=== PATIENT | female | born 1995 | race Caucasian/White ===

== ENCOUNTER 2016-10-07 10:59 | Emergency (ER) | payer MEDICAID ==
[2016-10-07 11:15] VITALS: BP 146/87
--- NOTE | 2016-10-07 11:18 | Emergency Department Report ---
Chief Complaint: Chest Pain Stated Complaint: CHEST PAIN/CRAMPING/VAG BLEEDING Time Seen by Provider: 10/07/16 11:16 - HPI History of Present Illness: PT states she has hx of anemia PT had lmp 09/23/16 PT reports vaginal spotting x 2 days - ROS Review of Systems: + chest pain + fatigue - Exam Vital Signs: Vital Signs 10/07/16 11:11 Temperature 98.1 F Pulse Rate 62 Respiratory 18 Rate Blood Pressure 146/87 O2 Sat by Pulse 100 Oximetry Physical Exam: pt looks well, non toxic conjunctiva pale MSE screening note: Focused history and physical exam performed. Due to findings the following was ordered: ekg, labs ED Disposition for MSE Condition: Stable
[2016-10-07 11:43] LABS: Basophils % (Auto) 0.9 % (0.0-1.8); Eosinophils % (Auto) 2.9 % (0.0-4.3); Hematocrit 40.6 % (30.3-42.9); Hemoglobin 13.4 gm/dl (10.1-14.3); Mean Corpuscular HGB Conc 33 % (30-34); Mean Corpuscular Hemoglobin 28 pg (28-32); Mean Corpuscular Volume 86 fl (79-97); Platelet Count 254 K/mm3 (140-440); Red Blood Count 4.73 M/mm3 (3.65-5.03); Red Cell Distribution Width 15.1 % (13.2-15.2); White Blood Count 5.9 K/mm3 (4.5-11.0)
[2016-10-07 11:53] LABS: INR 0.97 (0.87-1.13)
[2016-10-07 11:54] LABS: Partial Thromboplastin Time 27.8 Sec. (24.2-36.6)
[2016-10-07 12:07] LABS: Alanine Aminotransferase 12 units/L (7-56); Albumin 4.3 g/dL (3.9-5); Albumin/Globulin Ratio 1.4 %; Alkaline Phosphatase 59 units/L (35-129); Anion Gap 17 mmol/L; BUN/Creatinine Ratio 7.14; Blood Urea Nitrogen 5 mg/dL (7-17); Calcium 8.8 mg/dL (8.4-10.2); Carbon Dioxide 25 mmol/L (22-30); Chloride 105.4 mmol/L (98-107); Glucose 107 mg/dL (65-100); Potassium 4.4 mmol/L (3.6-5.0); Sodium 143 mmol/L (137-145); Total Protein 7.4 g/dL (6.3-8.2)
[2016-10-07 12:26] LABS: Bacteria,Urine 1+ /HPF (Negative); Bilirubin,Urine NEG (Negative); Blood,Urine MOD (Negative); Ketones,Urine NEG (Negative); Leukocyte Esterase,Urine TR (Negative); Mucus,Urine FEW /HPF; Nitrite,Urine NEG (Negative); Protein,Urine <15 mg/dL mg/dL (Negative); Urobilinogen,Urine < 2.0 mg/dL (<2.0)
--- NOTE | 2016-10-07 12:44 | XRay Report ---
ROUTINE CHEST, TWO VIEWS: HISTORY: chest pain. The trachea, heart, mediastinal contour, lung cobian and bony thorax are unremarkable. IMPRESSION: Unremarkable chest x-ray.
--- NOTE | 2016-10-21 00:06 | ED Elopement Review ---
ED Pt Elopement review - Results review Lab results: Laboratory Tests 10/07/16 10/07/16 10/07/16 11:23 11:23 11:23 WBC 5.9 RBC 4.73 Hgb 13.4 Hct 40.6 MCV 86 MCH 28 MCHC 33 RDW 15.1 Plt Count 254 Lymph % (Auto) 43.7 H Webb % (Auto) 4.4 Eos % (Auto) 2.9 Baso % (Auto) 0.9 Lymph # 2.6 Webb # 0.3 Eos # 0.2 Baso # 0.1 Seg Neutrophils % 48.1 Seg Neutrophils # 2.8 PT 12.8 INR 0.97 APTT 27.8 Sodium 143 Potassium 4.4 Chloride 105.4 Carbon Dioxide 25 Anion Gap 17 BUN 5 L Creatinine 0.7 Estimated GFR > 60 BUN/Creatinine Ratio 7.14 Glucose 107 H Calcium 8.8 Total Bilirubin 0.30 AST 19 ALT 12 Alkaline Phosphatase 59 Troponin T < 0.010 Total Protein 7.4 Albumin 4.3 Albumin/Globulin Ratio 1.4 HCG, Qual Urine Color Urine Turbidity Urine pH Ur Specific [place] Urine Protein Urine Glucose (UA) Urine Ketones Urine Blood Urine Nitrite Urine Bilirubin Urine Urobilinogen Ur Leukocyte Esterase Urine WBC (Auto) Urine RBC (Auto) U Epithel Cells (Auto) Urine Bacteria (Auto) Urine Mucus 10/07/16 10/07/16 11:23 11:48 WBC RBC Hgb Hct MCV MCH MCHC RDW Plt Count Lymph % (Auto) Webb % (Auto) Eos % (Auto) Baso % (Auto) Lymph # Webb # Eos # Baso # Seg Neutrophils % Seg Neutrophils # PT INR APTT Sodium Potassium Chloride Carbon Dioxide Anion Gap BUN Creatinine Estimated GFR BUN/Creatinine Ratio Glucose Calcium Total Bilirubin AST ALT Alkaline Phosphatase Troponin T Total Protein Albumin Albumin/Globulin Ratio HCG, Qual Negative Urine Color Yellow Urine Turbidity Clear Urine pH 6.0 Ur Specific [place] 1.013 Urine Protein <15 mg/dl Urine Glucose (UA) Neg Urine Ketones Neg Urine Blood Mod Urine Nitrite Neg Urine Bilirubin Neg Urine Urobilinogen < 2.0 Ur Leukocyte Esterase Tr Urine WBC (Auto) 2.0 Urine RBC (Auto) 2.0 U Epithel Cells (Auto) 4.0 Urine Bacteria (Auto) 1+ Urine Mucus Few - Call Back decision Pt Call Back Decision: Pt to F/U with PMD
== END 2016-10-07 17:00 | disposition left against medical advice (07) ==
LOC: ED 10:59
DX: R07.9 Chest pain, unspecified (principal); N93.8 Other specified abnormal uterine and vaginal bleeding; Z53.21 Procedure and treatment not carried out due to patient leaving prior to being seen by health care provider
CPT/HCPCS: 36415; 71020; 80053; 81001; 84484; 84703; 85025; 85610; 85730; 93005; 93010

== ENCOUNTER 2017-09-08 19:10 | Emergency (ER) | payer MEDICAID ==
[2017-09-08 19:31] VITALS: BP 129/72
--- NOTE | 2017-09-08 23:39 | Ultrasound Report ---
FINAL REPORT PROCEDURE: US OB > = 14 WEEKS FETUS TECHNIQUE: Real-time limited sonographic examination was performed for evaluation of well-being, placenta for each fetus with image documentation (1 or more fetuses). CPT 34604 HISTORY: PELVIC PAIN WITH COMPARISON: No priors available for review FINDINGS: MATERNAL Uterus: Within normal limits . Cervix length: 2.8 cm. Internal Os: Closed . FETUS IUP: Single living intrauterine . Position: Vertex. Placental position: Posterior, without previa . Amniotic fluid volume: Normal . Heart rate and rhythm: 158 BPM, Regular . anatomic survey: Not performed on this study. MEASUREMENTS BPD: 2.9 centimeter. HC: 10.9 centimeter. AC: 9.1 centimeter. FL: 1.5 centimeter. Mean Gestational Age (composite criteria): 15 weeks 1 day. Ratio biometry: Normal . Estimated Due Date (earliest scan): 03/01/2018. IMPRESSION: 1. Single living intrauterine gestation at approximately 15 weeks 1 day. 2. EDC by US 03/01/2018.
[2017-09-09 00:15] LABS: Bilirubin,Urine NEG (Negative); Blood,Urine NEG (Negative); Calcium Oxalate Crystals,Urine FEW; Color,Urine Yellow (Yellow); Mucus,Urine 2+ /HPF; Protein,Urine <15 mg/dL mg/dL (Negative)
--- NOTE | 2017-09-09 00:18 | Emergency Department Report ---
ED General Adult HPI - General Chief complaint: Urogenital-Female Stated complaint: INFECTION NOSE/ Time Seen by Provider: 09/08/17 23:26 Source: patient Mode of arrival: Ambulatory Limitations: No Limitations - History of Present Illness Initial comments: 22-year-old -[place] female comes in complaining of infected nose ring and pelvic cramping. Patient reports she is 13 weeks . Her last visit with her OB was on 08/18/2017. Patient denies any vaginal bleeding no nausea no vomiting no fever no chills she admits that the pain is crampy intermittent. She is followed by [facility] OB next appointment is 09/15/2017. Patient does report that she does not go to the bathroom and have bowel movements -: days(s) (5 cramping ) Location: face (nose ring), pelvis Severity scale (0 -10): 8 Quality: other (crampy) Consistency: intermittent Improves with: none Worsens with: none Associated Symptoms: denies other symptoms - Related Data Previous Rx's Medication Instructions Recorded Last Taken Type HYDROcodone/APAP 5-325 [Mulberry 1 each PO Q4-6H PRN #20 tablet 11/12/14 Unknown Rx 5/325] Allergies Allergy/AdvReac Type Severity Reaction Status Date / Time No Known Allergies Allergy Verified 11/11/14 23:35 ED Review of Systems ROS: Stated complaint: INFECTION NOSE/ Other details as noted in HPI ENT: other (nose ring won't come out) Gastrointestinal: constipation Genitourinary: other (pelvic cramping) Skin: denies: rash, lesions Neurological: denies: headache, weakness, paresthesias ED Past Medical Hx - Past Medical History Hx Hypertension: Yes (GESTATIONAL) Additional medical history: anemia - Surgical History Additional Surgical History: 04-14-2016- NOT BY CHOICE, DUE TO DEMISE - Social History Smoking Status: Never Smoker Substance Use Type: None - Medications Home Medications: Home Medications Medication Instructions Recorded Confirmed Last Taken Type HYDROcodone/APAP 5-325 [Mulberry 1 each PO Q4-6H PRN #20 tablet 11/12/14 Unknown Rx 5/325] ED Physical Exam - General Limitations: No Limitations General appearance: alert, in no apparent distress - Head Head exam: Present: atraumatic, normocephalic - ENT ENT exam: Present: other (small straight piercing to the right nostril non- erythematous non-edematous, hyperpigmented no discharge noted) - Respiratory Respiratory exam: Present: normal lung sounds bilaterally. Absent: respiratory distress - Cardiovascular Cardiovascular Exam: Present: regular rate, normal rhythm. Absent: systolic murmur, diastolic murmur, rubs, gallop - GI/Abdominal GI/Abdominal exam: Present: soft, normal bowel sounds. Absent: distended, tenderness ED Course Vital Signs 09/08/17 19:26 Temperature 99 F Pulse Rate 85 Respiratory 18 Rate Blood Pressure 129/72 O2 Sat by Pulse 100 Oximetry - Foreign Body Removal Nose Location: nostril (R) Suspected Foreign Body: other (piercing) Patient Preparation: topical anesthetic Foreign Body Removal Technique: other (pickups) Patient Tolerated Procedure: well Complications: none ED Medical Decision Making - Medical Decision Making Patient has been evaluated by this provider fast track. Removal of nostril piercing from the right nostril. Waiting ultrasound report. Critical care attestation.: If time is entered above; I have spent that time in minutes in the direct care of this critically ill patient, excluding procedure time. ED Disposition Clinical Impression: Pelvic cramping, Abdominal cramping affecting Foreign body in nose Qualifiers: Encounter type: initial encounter Qualified Code(s): T17.1XXA - Foreign body in nostril, initial encounter Disposition: - TO HOME OR SELFCARE Is pt being admited?: No Does the pt Need Aspirin: No Condition: Stable Instructions: (ED) Additional Instructions: Follow-up with her primary [employer]. Referrals: PRIMARY CARE, [Primary Care Provider] - 3-5 Days [facility] [Provider Group] - 3-5 Days Forms: Work/School Release Form(ED), Accompanied Note
== END 2017-09-09 01:40 | disposition home or self-care (01) ==
LOC: ED 19:10
DX: O9A.211 Injury, poisoning and certain other consequences of external causes complicating pregnancy, first trimester (principal); T17.1XXA Foreign body in nostril, initial encounter; O16.1 Unspecified maternal hypertension, first trimester; Z3A.13 13 weeks gestation of pregnancy; Z86.2 Personal history of diseases of the blood and blood-forming organs and certain disorders involving the immune mechanism; X58.XXXA Exposure to other specified factors, initial encounter; Y93.89 Activity, other specified; Y92.89 Other specified places as the place of occurrence of the external cause; Y99.8 Other external cause status
CPT/HCPCS: 36415; 76805; 81001; 84702

== ENCOUNTER 2018-06-30 20:23 | Emergency (ER) | payer MEDICAID, OTHER ==
--- NOTE | 2018-06-30 20:41 | Emergency Department Report ---
Blank Doc - Documentation Documentation: 23 y o female presents with pelvic pain x 1 day, states came out of no where, No dysuria, vag bleed, d/c ua/upt US?
[2018-06-30 22:22] LABS: Alanine Aminotransferase 11 units/L (7-56); Albumin 3.9 g/dL (3.9-5); BUN/Creatinine Ratio 10; Blood Urea Nitrogen 9 mg/dL (7-17); Calcium 9.2 mg/dL (8.4-10.2); Hemolysis Index 29
[2018-06-30 22:30] LABS: Hemoglobin 13.8 gm/dl (10.1-14.3); Mean Corpuscular HGB Conc 34 % (30-34); Mean Corpuscular Volume 85 fl (79-97); Platelet Count 293 K/mm3 (140-440); Red Blood Count 4.85 M/mm3 (3.65-5.03); Red Cell Distribution Width 14.3 % (13.2-15.2)
[2018-06-30 22:54] LABS: Basophils % (Manual) 0 % (0.0-1.8); Eosinophils % (Manual) 0 % (0.0-4.3); RBC Morphology Normal; Total Cells Counted 100
[2018-06-30] MEDS ORDERED: NACL 0.9% 1000 ML 1,000 ML IV ONE (23:40)
[2018-06-30] MEDS ORDERED: ZOFRAN IV ONE (23:40)
[2018-06-30] MEDS ORDERED: MORPHINE IV ONE (23:40)
--- NOTE | 2018-06-30 23:45 | Emergency Department Report ---
ED Abdominal Pain HPI - General Chief Complaint: Abdominal Pain Stated Complaint: ABD/BACK PAIN Time Seen by Provider: 06/30/18 20:37 Source: patient Mode of arrival: Ambulatory Limitations: No Limitations - History of Present Illness Initial Comments: Patient is 23 years old female with no significant past medical history except for hypertension. Patient presented to the emergency room complaining of lower abdominal pain since last night. Patient denied any fever or chills. Patient also denied any nausea or vomiting, diarrhea, vaginal discharge or vaginal bleeding. Patient stated that she is having painful urination. MD Complaint: abdominal pain Severity scale (0 -10): 9 - Related Data Previous Rx's Medication Instructions Recorded Last Taken Type Ibuprofen 600 mg PO Q6HR PRN #30 tablet 02/24/18 Unknown Rx Labetalol [Normodyne TAB] 200 mg PO BID #60 tablet 02/24/18 Unknown Rx Allergies Allergy/AdvReac Type Severity Reaction Status Date / Time No Known Allergies Allergy Verified 11/11/14 23:35 ED Review of Systems ROS: Stated complaint: ABD/BACK PAIN Other details as noted in HPI Comment: All other systems reviewed and negative Constitutional: denies: chills, fever Respiratory: denies: cough, orthopnea, shortness of breath, SOB with exertion, wheezing Cardiovascular: denies: chest pain, palpitations Gastrointestinal: abdominal pain. denies: nausea, vomiting Genitourinary: dysuria Neurological: denies: headache, weakness, numbness, paresthesias, confusion ED Past Medical Hx - Past Medical History Hx Hypertension: No Hx Diabetes: No Hx Deep Vein Thrombosis: No Hx Liver Disease: No Hx Renal Disease: No Hx Sickle Cell Disease: No Hx Seizures: No Hx Asthma: No Hx HIV: No Additional medical history: anemia - Surgical History Additional Surgical History: 04-14-2016- NOT BY CHOICE, DUE TO DEMISE - Social History Smoking Status: Never Smoker Substance Use Type: None - Medications Home Medications: Home Medications Medication Instructions Recorded Confirmed Last Taken Type Ibuprofen 600 mg PO Q6HR PRN #30 tablet 02/24/18 Unknown Rx Labetalol [Normodyne TAB] 200 mg PO BID #60 tablet 02/24/18 Unknown Rx ED Physical Exam - General Limitations: No Limitations General appearance: alert, in no apparent distress - Head Head exam: Present: atraumatic, normocephalic, normal inspection - Eye Eye exam: Present: normal appearance, PERRL - ENT ENT exam: Present: normal exam, normal orophraynx, mucous membranes moist - Neck Neck exam: Present: normal inspection, full ROM. Absent: tenderness, meningismus, lymphadenopathy - Respiratory Respiratory exam: Present: normal lung sounds bilaterally - Cardiovascular Cardiovascular Exam: Present: regular rate, normal rhythm, normal heart sounds - GI/Abdominal GI/Abdominal exam: Present: soft, tenderness (suprapubic and left lower quadrant), normal bowel sounds, other (negative McBurney sign). Absent: distended, guarding, rebound, rigid, organomegaly, mass, bruit, pulsatile mass, hernia - Extremities Exam Extremities exam: Present: normal inspection, full ROM, normal capillary refill. Absent: pedal edema, calf tenderness - Back Exam Back exam: Present: normal inspection, full ROM. Absent: tenderness, CVA ten derness (R), CVA tenderness (L), muscle spasm, paraspinal tenderness, vertebral tenderness - Neurological Exam Neurological exam: Present: alert, oriented X3, CN II-XII intact, normal gait, reflexes normal. Absent: motor sensory deficit - Psychiatric Psychiatric exam: Present: normal affect, normal mood - Skin Skin exam: Present: warm, intact, normal color ED Course Vital Signs 06/30/18 06/30/18 06/30/18 20:37 23:35 23:50 Temperature 98.5 F 98.2 F Pulse Rate 129 H 125 H Respiratory 18 23 20 Rate Blood Pressure 143/84 Blood Pressure 116/66 [Left] O2 Sat by Pulse 98 98 Oximetry 07/01/18 07/01/18 00:00 00:20 Temperature Pulse Rate 115 H Respiratory 21 16 Rate Blood Pressure 117/57 Blood Pressure [Left] O2 Sat by Pulse 98 Oximetry ED Medical Decision Making - Lab Data Result diagrams: 06/30/18 22:00 06/30/18 22:00 - Radiology Data Radiology results: report reviewed Referring Physician: LEONOR HAYWARD Patient Name: TOMA CROCKETT Date of : 1995 Sex: Female Report Date: 2018-07-01 Report Status: Finalized Findings [facility] [address] [place] [address] Cat Scan Report Signed Patient: TOMA CROCKETT MR#: [id number] : 1995 Acct:[id number] Age/Sex: 23 / F ADM Date: 06/30/18 Loc: ED Attending Dr: Ordering Physician: LEONOR HAYWARD Date of Service: 07/01/18 Procedure(s): CT abdomen pelvis w con Accession Number(s): [id number] cc: LEONOR HAYWARD PROCEDURE: CT ABDOMEN PELVIS W CON TECHNIQUE: Computerized axial tomography of the abdomen and pelvis was performed after the IV injection of iodinated nonionic contrast. CT DOSE LENGTH PRODUCT: mGycm HISTORY: abdominal pain COMPARISONS: None . FINDINGS: Visualized lower thorax: No significant abnormality. Liver: Normal size and attenuation. Spleen: Normal size and attenuation. Gallbladder and biliary system: Normal. Pancreas: Normal. Adrenals: Normal. Kidneys: Normal. GI tract: The appendix measures up to 6 mm in diameter which is within normal limits. There are no inflammatory changes of the surrounding fat. Acute appendicitis is considered unlikely but not entirely excluded. Correlation with clinical data is suggested. There is no bowel obstruction, colitis or enteritis. . Lymph nodes and mesentery: There are borderline enlarged mesenteric and retroperitoneal lymph nodes which are nonspecific.. Vasculature: Normal.. Bladder: Normal. Reproductive organs: Uterus and ovaries are unremarkable.. Peritoneum: There is no ascites or free air, abscess or adenopathy.. Musculoskeletal structures: No significant abnormality. IMPRESSION: The appendix measures up to 6 mm in diameter which is within normal limits. There are no inflammatory changes of the surrounding fat. Acute appendicitis is considered unlikely but not entirely excluded. Correlation with clinical data is suggested. There is no bowel obstruction, colitis or enteritis. . There are borderline enlarged mesenteric and retroperitoneal lymph nodes which are nonspecific.. Uterus and ovaries are unremarkable.. There is no ascites or free air, abscess or adenopathy.. . This document is electronically signed by Hi Ham MD., Jul 01 2018 01:44:57 AM ET Transcribed By: CO Dictated By: HI HAM MD Electronically Authenticated By: HI HAM MD Signed Date/Time: 07/01/18 0146 DD/ TD/TT: 07/01/1819 - Medical Decision Making Patient is 23 years old female with no significant past medical history except for hypertension. Patient presented to the emergency room complaining of lower abdominal pain since last night. Patient denied any fever or chills. Patient also denied any nausea or vomiting, diarrhea, vaginal discharge or vaginal bleeding. Patient stated that she is having painful urination. Patient labs reviewed and show a white blood cells of 21,000. CT abdomen and pelvis is negative for acute finding is specifically no evidence of acute appendicitis. No clinical evidence of acute appendicitis. Patient urine is positive. Patient's symptom is most likely related to UTI however patient informed about possibility of appendicitis and other causes of acute abdomen and advised to return to the ER if her symptoms have not improved. Patient will be started on ciprofloxacin for 7 days and advised to follow-up with her primary care physician in the next 2-3 days. Critical care attestation.: If time is entered above; I have spent that time in minutes in the direct care of this critically ill patient, excluding procedure time. ED Disposition Clinical Impression: Abdominal pain, UTI (urinary tract infection) Disposition: - TO HOME OR SELFCARE Is pt being admited?: No Condition: Stable Instructions: Abdominal Pain (ED), Urinary Tract Infection in Women (ED) Referrals: RACHEL MÁRQUEZ MD [Primary Care Provider] - 3-5 Days
[2018-06-30 23:55] LABS: HCG Qualitative,Urine Negative (Negative)
[2018-06-30 23:57] LABS: Bilirubin,Urine NEG (Negative); Blood,Urine SM (Negative); Color,Urine Yellow (Yellow); Mucus,Urine 3+ /HPF; Urobilinogen,Urine < 2.0 mg/dL (<2.0)
[2018-06-30 23:59] LABS: Amphetamine Screen,Urine PRESUMPTIVE NEGATIVE; Benzodiazepines Screen,Urine PRESUMPTIVE NEGATIVE; Cocaine Screen,Urine PRESUMPTIVE NEGATIVE; Methadone Screen,Urine PRESUMPTIVE NEGATIVE; Opiate Screen,Urine PRESUMPTIVE NEGATIVE
[2018-07-01] MEDS ORDERED: ZOSYN/NS 3.375GM/50ML 3.375 GM/50 ML BAG IV ONE (00:15)
[2018-07-01 00:17] LABS: Cannabinoid Screen,Urine PRESUMPTIVE POSITIVE
--- NOTE | 2018-07-01 01:46 | Cat Scan Report ---
PROCEDURE: CT ABDOMEN PELVIS W CON TECHNIQUE: Computerized axial tomography of the abdomen and pelvis was performed after the IV inject ion of iodinated nonionic contrast. CT DOSE LENGTH PRODUCT: mGycm HISTORY: abdominal pain COMPARISONS: None . FINDINGS: Visualized lower thorax: No significant abnormality. Liver: Normal size and attenuation. Spleen: Normal size and attenuation. Gallbladder and biliary system: Normal. Pancreas: Normal. Adrenals: Normal. Kidneys: Normal. GI tract: The appendix measures up to 6 mm in diameter which is within normal limits. There are no i nflammatory changes of the surrounding fat. Acute appendicitis is considered unlikely but not entirel y excluded. Correlation with clinical data is suggested. There is no bowel obstruction, colitis or enteritis. . Lymph nodes and mesentery: There are borderline enlarged mesenteric and retroperitoneal lymph nodes w hich are nonspecific.. Vasculature: Normal.. Bladder: Normal. Reproductive organs: Uterus and ovaries are unremarkable.. Peritoneum: There is no ascites or free air, abscess or adenopathy.. Musculoskeletal structures: No significant abnormality. IMPRESSION: The appendix measures up to 6 mm in diameter which is within normal limits. There are no inflammatory changes of the surrounding fat. Acute appendicitis is considered unlikely but not entirely excluded. Correlation with clinical data is suggested. There is no bowel obstruction, colitis or enteritis. . There are borderline enlarged mesenteric and retroperitoneal lymph nodes which are nonspecific.. Uterus and ovaries are unremarkable.. There is no ascites or free air, abscess or adenopathy.. . This document is electronically signed by Hi Carbone MD., Jul 01 2018 01:44:57 AM ET
[2018-07-01] MEDS ORDERED: NACL 0.9% 1000 ML 1,000 ML IV ONE (02:24)
[2018-07-01] MEDS ORDERED: TYLENOL ONE ×2 (03:40→03:41)
[2018-07-01] MEDS ORDERED: TYLENOL PO ONE (03:40)
[2018-07-01 05:22] VITALS: BP 131/86
== END 2018-07-01 05:21 | disposition home or self-care (01) ==
LOC: ED 20:23
DX: N39.0 Urinary tract infection, site not specified (principal); Z86.2 Personal history of diseases of the blood and blood-forming organs and certain disorders involving the immune mechanism
CPT/HCPCS: 36415; 74177; 80053; 80307; 81001; 81025; 84703; 85007; 85025; 87040; 96365; 96375; 99284; G0480; J2270; J2405; J2543; J7030; Q9967; 80320

== ENCOUNTER 2021-08-30 23:42 | Emergency (ER) | payer MEDICAID, OTHER ==
[2021-08-31 00:58] VITALS: BP 130/83
[2021-08-31 03:28] LABS: Basophils % (Auto) 0.7 % (0.0-1.8); Eosinophils # (Auto) 0.3 K/mm3 (0.0-0.4); Eosinophils % (Auto) 4.7 % (0.0-4.3); Hematocrit 38.9 % (30.3-42.9); Hemoglobin 12.6 gm/dl (10.1-14.3); Lymphocytes # (Auto) 1.5 K/mm3 (1.2-5.4); Lymphocytes % (Auto) 22.7 % (13.4-35.0); Mean Corpuscular HGB Conc 32 % (30-34); Mean Corpuscular Volume 89 fl (79-97); Monocytes # (Auto) 0.5 K/mm3 (0.0-0.8); Platelet Count 226 K/mm3 (140-440); Red Blood Count 4.38 M/mm3 (3.65-5.03); Red Cell Distribution Width 14.4 % (13.2-15.2)
[2021-08-31] MEDS ORDERED: ACETAMINOPHEN 500 MG TAB PO ONE (07:46)
--- NOTE | 2021-08-31 07:54 | Emergency Department Report ---
ED General Adult HPI - General Chief complaint: Vaginal Bleeding Stated complaint: BLEEDING 9 WEEKS Time Seen by Provider: 08/31/21 07:44 Source: patient Mode of arrival: Ambulatory Limitations: No Limitations - History of Present Illness Initial comments: Patient 26-year-old female who presents for vaginal bleeding patient states 9 weeks , patient is G7, P3, A3 including 1 miscarriage. Last menstrual cycle June 2019 . Patient has not seen [facility] this . States bleeding at moderate, to 3 pads daily. States she passed a clot yesterday. Is been no fevers no chills no nausea vomiting. Patient does endorse seasonal allergies with cough productive yellow. There is no wheezing or stridor. Abdominal pain is described at 4/10 cramping intermediate is no dysuria frequency or urgency. Patient is tolerating p.o. intake. - Related Data Previous Rx's Medication Instructions Recorded Last Taken Type Ibuprofen 600 mg PO Q6HR PRN #30 tablet 02/24/18 Unknown Rx labetaloL [Labetalol 200mg TAB] 200 mg PO BID #60 tablet 02/24/18 Unknown Rx Ciprofloxacin HCl [Ciprofloxacin 500 mg PO Q12H #14 tab 07/01/18 Unknown Rx TAB] Ondansetron [Zofran Odt] 4 mg PO Q8HR PRN #14 tab.rapdis 07/01/18 Unknown Rx traMADoL [Ultram 50 MG tab] 50 mg PO Q4HR PRN #14 tablet 07/01/18 Unknown Rx Acetaminophen [Acetaminophen TAB] 650 mg PO Q6HR PRN #30 tablet 08/31/21 Unknown Rx guaiFENesin DM [Guaifenesin Dm 10 ml PO Q8H PRN #1 bottle 08/31/21 Unknown Rx Syrup] Allergies Allergy/AdvReac Type Severity Reaction Status Date / Time No Known Allergies Allergy Verified 11/11/14 23:35 ED Review of Systems ROS: Stated complaint: BLEEDING 9 WEEKS Other details as noted in HPI Constitutional: denies: chills, fever Eyes: denies: eye pain, eye discharge, vision change ENT: congestion. denies: ear pain, throat pain Respiratory: denies: cough, shortness of breath, wheezing Cardiovascular: denies: chest pain, palpitations Endocrine: no symptoms reported Gastrointestinal: abdominal pain. denies: nausea, vomiting, diarrhea, constipation Genitourinary: other. denies: urgency, dysuria, frequency (Vaginal bleeding), hematuria, discharge Musculoskeletal: denies: back pain, joint swelling, arthralgia Skin: denies: rash, lesions Neurological: denies: headache, weakness, paresthesias, vertigo Psychiatric: denies: anxiety, depression Hematological/Lymphatic: denies: easy bleeding, easy bruising ED Past Medical Hx - Past Medical History Hx Hypertension: No Hx Diabetes: No Hx Deep Vein Thrombosis: No Hx Liver Disease: No Hx Renal Disease: No Hx Sickle Cell Disease: No Hx Seizures: No Hx Asthma: No Hx HIV: No Additional medical history: anemia - Surgical History Additional Surgical History: 04-14-2016- NOT BY CHOICE, DUE TO DEMISE - Social History Smoking Status: Never Smoker Substance Use Type: None - Medications Home Medications: Home Medications Medication Instructions Recorded Confirmed Last Taken Type Ibuprofen 600 mg PO Q6HR PRN #30 tablet 02/24/18 Unknown Rx labetaloL [Labetalol 200mg TAB] 200 mg PO BID #60 tablet 02/24/18 Unknown Rx Ciprofloxacin HCl [Ciprofloxacin 500 mg PO Q12H #14 tab 07/01/18 Unknown Rx TAB] Ondansetron [Zofran Odt] 4 mg PO Q8HR PRN #14 tab.rapdis 07/01/18 Unknown Rx traMADoL [Ultram 50 MG tab] 50 mg PO Q4HR PRN #14 tablet 07/01/18 Unknown Rx Acetaminophen [Acetaminophen TAB] 650 mg PO Q6HR PRN #30 tablet 08/31/21 Unknown Rx guaiFENesin DM [Guaifenesin Dm 10 ml PO Q8H PRN #1 bottle 08/31/21 Unknown Rx Syrup] ED Physical Exam - General Limitations: No Limitations General appearance: alert, in no apparent distress - Head Head exam: Present: normocephalic, normal inspection - Eye Eye exam: Present: normal appearance, EOMI Pupils: Present: normal accommodation - ENT ENT exam: Present: normal orophraynx, mucous membranes moist - Neck Neck exam: Present: normal inspection, full ROM. Absent: tenderness, lymphadenopathy - Respiratory Respiratory exam: Present: normal lung sounds bilaterally. Absent: respiratory distress, wheezes, stridor, chest wall tenderness - Cardiovascular Cardiovascular Exam: Present: regular rate, normal rhythm, normal heart sounds. Absent: systolic murmur, diastolic murmur, rubs, gallop - GI/Abdominal GI/Abdominal exam: Present: soft, normal bowel sounds. Absent: distended, tenderness - Rectal Rectal exam: Present: deferred - Extremities Exam Extremities exam: Present: normal inspection, full ROM, normal capillary refill. Absent: pedal edema - Back Exam Back exam: Present: normal inspection, full ROM. Absent: CVA tenderness (R), CVA tenderness (L) - Neurological Exam Neurological exam: Present: alert, oriented X3, CN II-XII intact - Expanded Neurological Exam Expanded Patient oriented to: Present: person, place, time Best Eye Response (Elena): (4) open spontaneously Best Motor Response (Elena): (6) obeys commands Best Verbal Response (Elena): (5) oriented Elena Total: 15 - Psychiatric Psychiatric exam: Present: normal affect, normal mood - Skin Skin exam: Present: warm, dry, intact, normal color. Absent: rash ED Course Vital Signs 08/30/21 23:52 Temperature 99.1 F Pulse Rate 77 Respiratory 18 Rate Blood Pressure 130/83 O2 Sat by Pulse 98 Oximetry ED Medical Decision Making - Lab Data Result diagrams: 08/31/21 01:38 Labs 08/31/21 08/31/21 08/31/21 01:38 01:38 01:38 WBC 6.7 RBC 4.38 Hgb 12.6 Hct 38.9 MCV 89 MCH 29 MCHC 32 RDW 14.4 Plt Count 226 Lymph % (Auto) 22.7 Camp % (Auto) 7.0 Eos % (Auto) 4.7 H Baso % (Auto) 0.7 Lymph # (Auto) 1.5 Camp # (Auto) 0.5 Eos # (Auto) 0.3 Baso # (Auto) 0.0 Seg Neutrophils % 64.9 Seg Neutrophils # 4.4 HCG, Qual Negative HCG, Quant 00151 H Blood Type 08/31/21 01:38 WBC RBC Hgb Hct MCV MCH MCHC RDW Plt Count Lymph % (Auto) Camp % (Auto) Eos % (Auto) Baso % (Auto) Lymph # (Auto) Camp # (Auto) Eos # (Auto) Baso # (Auto) Seg Neutrophils % Seg Neutrophils # HCG, Qual HCG, Quant Blood Type B POSITIVE - Radiology Data Radiology results: report reviewed, image reviewed ULTRASOUND OBSTETRIC INDICATION: 9.3 weeks with vaginal bleeding. TECHNIQUE: Transabdominal and Transvaginal. COMPARISON: No relevant prior imaging study available. FINDINGS: GESTATIONAL SAC: Well-defined oval shape and intrauterine in location. YOLK SAC: No significant abnormality. EMBRYO/FETUS: No significant abnormality. - [place]-Rump Length = 4.11 cm = 11 weeks, 0 day(s). - Heart Rate = 160 beats per minute. ADNEXA: The left ovary appears unremarkable. The right ovary is not seen. FREE FLUID: None. ADDITIONAL FINDINGS: None. IMPRESSION: 1. Single, living intrauterine with estimated sonographic age of 11 weeks, 0 day(s). 2. No significant abnormality. Signer Name: Fredy Parker MD Signed: 08/31/2021 8:46 AM Workstation Name: [id number] Transcribed By: ASHER Dictated By: Fredy Parker MD Electronically Authenticated By: Fredy Parker MD Signed Date/Time: 08/31/21845 DD/ 4 TD/TT: ULTRASOUND OBSTETRIC INDICATION: 9.3 weeks with vaginal bleeding. TECHNIQUE: Transabdominal and Transvaginal. COMPARISON: No relevant prior imaging study available. FINDINGS: GESTATIONAL SAC: Well-defined oval shape and intrauterine in location. YOLK SAC: No significant abnormality. EMBRYO/FETUS: No significant abnormality. - [place]-Rump Length = 4.11 cm = 11 weeks, 0 day(s). - Heart Rate = 160 beats per minute. ADNEXA: The left ovary appears unremarkable. The right ovary is not seen. FREE FLUID: None. ADDITIONAL FINDINGS: None. IMPRESSION: 1. Single, living intrauterine with estimated sonographic age of 11 weeks, 0 day(s). 2. No significant abnormality. Signer Name: Fredy Parker MD Signed: 08/31/2021 8:46 AM Workstation Name: [id number] Transcribed By: ASHER Dictated By: Fredy Parker MD Electronically Authenticated By: Fredy Parker MD Signed Date/Time: 08/31/21845 DD/ 4 TD/TT: - Medical Decision Making Ultrasound OB single IUP 11 weeks 0 days heart rate 160 bpm, noted above, CBC noted above, patient has been positive. This is intact. Lung sounds are clear throughout is likely URI, diagnosis vaginal bleeding during . We will follow-up with [facility] in 1 to 2 days. Will return to emergency department should symptoms worsen, patient advised pelvic rest until follow-up with [facility]. Critical care attestation.: If time is entered above; I have spent that time in minutes in the direct care of this critically ill patient, excluding procedure time. ED Disposition Clinical Impression: Vaginal bleeding during URI (upper respiratory infection) Qualifiers: URI type: unspecified viral URI Qualified Code(s): J06.9 - Acute upper respiratory infection, unspecified Disposition: HOME / SELF CARE / HOMELESS Is pt being admited?: No Does the pt Need Aspirin: No Condition: Stable Instructions: Viral Respiratory Infection, [id number], Vaginal Bleeding During , First Trimester, [id number] Additional Instructions: You are 11 weeks and 0 days , take medications as prescribed, no sex until after follow-up with [facility] follow-up with your primary care doctor in 2 to 3 days. Follow-up with your [facility] in 2 to 3 days. Return to emergency department should symptoms worsen. Prescriptions: Acetaminophen [Acetaminophen TAB] 650 mg PO Q6HR PRN #30 tablet PRN Reason: Pain guaiFENesin DM [Guaifenesin Dm Syrup] 10 ml PO Q8H PRN #1 bottle PRN Reason: Cough Referrals: TAMMY MASON MD [Staff Physician] - 3-5 Days Forms: Work/School Release Form(ED) Time of Disposition: 09:21
--- NOTE | 2021-08-31 08:51 | Ultrasound Report ---
ULTRASOUND OBSTETRIC INDICATION: 9.3 weeks with vaginal bleeding. TECHNIQUE: Transabdominal and Transvaginal. COMPARISON: No relevant prior imaging study available. FINDINGS: GESTATIONAL SAC: Well-defined oval shape and intrauterine in location. YOLK SAC: No significant abnormality. EMBRYO/FETUS: No significant abnormality. - [place]-Rump Length = 4.11 cm = 11 weeks, 0 day(s). - Heart Rate = 160 beats per minute. ADNEXA: The left ovary appears unremarkable. The right ovary is not seen. FREE FLUID: None. ADDITIONAL FINDINGS: None. IMPRESSION: 1. Single, living intrauterine with estimated sonographic age of 11 weeks, 0 day(s). 2. No significant abnormality. Signer Name: Fredy Parker MD Signed: 08/31/2021 8:46 AM Workstation Name: [id number]
--- NOTE | 2021-08-31 08:51 | Ultrasound Report ---
ULTRASOUND OBSTETRIC INDICATION: 9.3 weeks with vaginal bleeding. TECHNIQUE: Transabdominal and Transvaginal. COMPARISON: No relevant prior imaging study available. FINDINGS: GESTATIONAL SAC: Well-defined oval shape and intrauterine in location. YOLK SAC: No significant abnormality. EMBRYO/FETUS: No significant abnormality. - [place]-Rump Length = 4.11 cm = 11 weeks, 0 day(s). - Heart Rate = 160 beats per minute. ADNEXA: The left ovary appears unremarkable. The right ovary is not seen. FREE FLUID: None. ADDITIONAL FINDINGS: None. IMPRESSION: 1. Single, living intrauterine with estimated sonographic age of 11 weeks, 0 day(s). 2. No significant abnormality. Signer Name: Fredy Parker MD Signed: 08/31/2021 8:46 AM Workstation Name: [id number]
[2021-08-31 11:06] LABS: Bilirubin,Urine NEG (Negative); Blood,Urine NEG (Negative); Color,Urine Yellow (Yellow); Protein,Urine <15 mg/dL mg/dL (Negative); Urobilinogen,Urine < 2.0 mg/dL (<2.0)
[2021-08-31 11:10] LABS: Bacteria,Urine 1+ /HPF (Negative); Calcium Oxalate Crystals,Urine 1+; Mucus,Urine 2+ /HPF
== END 2021-08-31 09:38 | disposition home or self-care (01) ==
LOC: ED 23:42
DX: O20.8 Other hemorrhage in early pregnancy (principal); O23.41 Unspecified infection of urinary tract in pregnancy, first trimester; N39.0 Urinary tract infection, site not specified; Z3A.09 9 weeks gestation of pregnancy; Z79.899 Other long term (current) drug therapy
CPT/HCPCS: 36415; 76801; 76817; 76830; 81001; 84702; 84703; 85025; 86900; 86901; 99284